=== PATIENT | female | born 1970 | race Caucasian/White ===

== ENCOUNTER 2020-11-27 17:28 | Emergency (ER) | payer OTHER ==
[~2020-11-27 17:28] MED LIST: BENADRYL25 M1 PO; EPIPEN 2-P0.3 MG/0.3 SC; PEPCID AC20 MG PO; PREDNISONE 20MG20 MG PO
[2020-11-27 18:34] LABS: BASOPHIL 0.7 % (0-2); EOSINOPHIL 0.4 % (0-5); HCT 47.9 % (37.0-47.0); HGB 15.8 g/dl (12.5-16.0); LYMPHOCYTE 39.9 % (15-48); MCH 32.1 pg (25.0-31.0); MCV 97.4 fL (78.0-100.0); MONOCYTE 17.1 % (0-12); MPV 9.4 fL (6.0-9.5); NEUTROPHIL 41.5 % (41-80); NRBC 0; PLT 168 K/uL (150-400); RBC 4.92 M/uL (4.20-5.40); RDW 11.3 % (11.5-14.0); WBC 2.8 K/uL (4.0-10.5)
[2020-11-27 18:47] LABS: ALBUMIN 3.7 g/dL (3.4-5.0); BILIRUBIN - TOTAL 0.3 mg/dL (0.2-1.0); BUN/CREAT RATIO (CALC) 8.8 RATIO; CREATININE 0.91 mg/dL (0.51-0.95); GLOBULIN (CALCULATION) 4.1 g/dL; POTASSIUM 3.6 mmol/L (3.5-5.1); TOTAL PROTEIN 7.8 g/dL (6.4-8.2)
[2020-11-27 19:00] LABS: CORONAVIRUS 2019 SARS-COV-2 POSITIVE (NEGATIVE); INFLUENZA A NAA NEGATIVE (NEGATIVE)
[2020-11-27] MEDS ORDERED: PREDNISONE 20MG20 MG PO (20:42)
[2020-11-27] MEDS ORDERED: DIFLUCAN150 MG PO (20:42)
[2020-11-27] MEDS ORDERED: VENTOLIN HFA IN18 GM INH (20:42)
[2020-11-27] MEDS ORDERED: DOXYCYCLINE MO100 MG PO (20:42)
== END 2020-11-27 21:05 | disposition home or self-care (01) ==
LOC: FER 17:28
PROVIDERS: Nurse Practitioner Family
DX: U07.1 COVID-19 (principal); I10 Essential (primary) hypertension; Z79.899 Other long term (current) drug therapy; Z88.1 Allergy status to other antibiotic agents; Z88.7 Allergy status to serum and vaccine
CPT/HCPCS: 36415; 71045; 80053; 85025; 94640; 94664; J1100; J7030; U0002

== ENCOUNTER 2020-12-06 15:03 | Emergency (ER) | payer OTHER ==
[~2020-12-06 15:03] MED LIST changes: +DIFLUCAN150 MG PO; +DOXYCYCLINE MO100 MG PO; +VENTOLIN HFA IN18 GM INH
[2020-12-06 17:38] LABS: BASOPHIL 0.4 % (0-2); EOSINOPHIL 0.9 % (0-5); HCT 49.3 % (37.0-47.0); HGB 16.2 g/dl (12.5-16.0); LYMPHOCYTE 23.6 % (15-48); MCHC 32.9 g/dL (32.0-36.0); MCV 97.2 fL (78.0-100.0); MONOCYTE 9.5 % (0-12); MPV 9.1 fL (6.0-9.5); NRBC 0; PLT 251 K/uL (150-400); RBC 5.07 M/uL (4.20-5.40); WBC 5.4 K/uL (4.0-10.5)
[2020-12-06 17:57] LABS: ALBUMIN 3.6 g/dL (3.4-5.0); BILIRUBIN - TOTAL 0.6 mg/dL (0.2-1.0); BUN/CREAT RATIO (CALC) 7.6 RATIO; CREATININE 0.79 mg/dL (0.51-0.95); GLOBULIN (CALCULATION) 3.9 g/dL; POTASSIUM 3.6 mmol/L (3.5-5.1); TOTAL PROTEIN 7.5 g/dL (6.4-8.2)
[2020-12-06] MEDS ORDERED: LEVAQUIN500 MG PO (19:43)
[2020-12-06] MEDS ORDERED: VENTOLIN HFA IN18 GM INH (19:43)
[2020-12-06] MEDS ORDERED: PREDNISONE 20MG20 MG PO (19:43)
== END 2020-12-06 19:55 | disposition home or self-care (01) ==
LOC: FER 15:03
PROVIDERS: Nurse Practitioner Family
DX: U07.1 COVID-19 (principal); J12.82 Pneumonia due to coronavirus disease 2019; I10 Essential (primary) hypertension; Z88.1 Allergy status to other antibiotic agents; Z88.8 Allergy status to other drugs, medicaments and biological substances; Z79.899 Other long term (current) drug therapy
CPT/HCPCS: 36415; 71275; 80053; 85025; 85379; J0696; J1100; J7030; Q9967